=== PATIENT | female | born 1980 | race Caucasian/White ===

== ENCOUNTER 2025-02-13 09:48 | Outpatient (CLI) | payer OTHER, SELFPAY ==
--- NOTE | ~2025-02-13 | MR_ITS ---
EXAMINATION: MR pelvis wo/w con DATE: 02/13/2025 10:52 INDICATION: Menorrhagia with irregular menstrual cycle TECHNIQUE: Magnetic resonance imaging (MRI) of the pelvis was performed without and with 17 mL Multih ance intravenous contrast. Fullfield sequences of the pelvis included axial and coronal T2-weighted S S FSE, coronal 2D FIESTA, axial T1-weighted FSPGR, axial dual-echo T1-weighted FSPGR and axial T1 magnus ghted LAVA. Small field of view sequences included axial, sagittal and coronal T2-weighted FSE cente red on the uterus and adnexa. Postcontrast sequences included a time course axial T1-weighted LAVA w ith full-field of view of the pelvis. COMPARISON: None. FINDINGS: The visualized lower pole the right kidney is normal. The visualized bowels are unremarkable. Decompr essed bladder is normal. Postoperative change of prior section with transverse scarring kelley g the anterior pelvic wall and scarring with foci susceptibility artifact along the anterior lower ut erine segment. Likely tunnel cluster at the cervix with multiple subcentimeter T2 hyperintense nonenh ancing nabothian cysts with well-defined smooth peripheral margins, several of which appear to commun icate. Normal endometrial complex thickness of 2-3 mm. Small amount of likely physiologic fluid in th e cul-de-sac and instrumented between the uterus and the bladder. A few small normal bone marrow sign al throughout. Bilateral T2 hyperintense nonenhancing ovarian follicles measuring up to 12 mm. IMPRESSION: 1. Postoperative change of prior section with likely tunnel cluster of multiple nabothian cy sts, several of which appear to demonstrate communication. Reviewed, dictated and finalized at location B. IMPRESSION: 1. Postoperative change of prior section with likely tunnel cluster of multiple nabothian cysts, several of which appear to demonstrate communication .
== END 2025-02-13 09:49 | disposition home or self-care (01) ==
PROVIDERS: PCP Internal Medicine; Visit Provider Nurse Practitioner
DX: N92.0 Excessive and frequent menstruation with regular cycle (principal); R93.89 Abnormal findings on diagnostic imaging of other specified body structures; N88.8 Other specified noninflammatory disorders of cervix uteri
CPT/HCPCS: 72197; A9577